=== PATIENT | male | born 1950 | race African-American/Black ===

== ENCOUNTER 2018-10-23 18:30 | Inpatient (IN) | payer MEDICARE, MEDICAID ==
[~2018-10-23] VITALS: Ht 170.2 cm; Wt 66.5 kg
[2018-10-23 20:02] LABS: Basophils # (auto) 0.1 uL; Eosinophils # (auto) 0.1 uL; Eosinophils % (auto) 1.1 % (0.0-7.0); Hematocrit 35.7 % (41.0-53.0); Hemoglobin 11.8 g/dL (13.5-17.5); Lymphocytes # (auto) 1.6 uL; Lymphocytes % (auto) 16.4 % (10.0-50.0); Mean Corpuscular Hgb Conc. 33.2 g/dL (32.0-36.0); Mean Corpuscular Volume 84.5 fL (80.0-100.0); Monocytes # (auto) 1.1 uL; Monocytes % (auto) 10.5 % (0.0-12.0); Neutrophils # (auto) 7.1 uL; Nucleated Red Blood Cells % 0.1 %; Platelet Count (auto) 297 10^3/uL (140-450); Red Blood Cells 4.22 10^6/uL (4.5-5.90); Red Cell Distribution Width 15.2 % (11.8-14.3); White Blood Cell 10.1 10^3/uL (4.4-10.8)
[2018-10-23 20:19] LABS: Albumin 3.3 g/dL (3.4-5.0); BUN/Creatinine Ratio 11.6; Calcium 8.5 mg/dL (8.5-10.1); Potassium 3.3 mmol/L (3.5-5.1)
[2018-10-23 20:20] LABS: Partial Thromboplastin Time 28.7 sec (23.78-33.04); Prothrombin Time 10.7 sec (9.27-12.13)
[2018-10-23 20:21] LABS: Bilirubin, Total 0.3 mg/dL (0.2-1.0); Total Protein 7.2 g/dL (6.4-8.2)
[2018-10-23] MEDS ORDERED: ONDANSETRON HCL 4 MG/2 ML VIAL IV ONE (22:45)
[2018-10-23] MEDS ORDERED: cefTRIAXone 1GM/50ML D5W 50 ML IV ONE (22:45)
[2018-10-23] MEDS ORDERED: MORPHINE SULFATE 4 MG/ML SYR/VIAL IV ONE (22:45)
[2018-10-24] MEDS ORDERED: ONDANSETRON HCL 4 MG/2 ML VIAL IV PRN (03:00)
[2018-10-24] MEDS ORDERED: TEMAZEPAM 15 MG CAP PO PRN (03:00)
[2018-10-24] MEDS ORDERED: ACETAMINOPHEN 325 MG TAB PO PRN (03:00)
[2018-10-24] MEDS ORDERED: HYDROcodone-ACET 5/325MG TAB PO PRN (03:00)
[2018-10-24 05:00] VITALS: BP 149/67
[2018-10-24] MEDS: CLINDAMYCIN 600MG IV 50 ML IV SCH ×3 (05:36→22:50)
[2018-10-24 06:51] VITALS: BP 149/67
[2018-10-24 09:02] VITALS: BP 144/78
[2018-10-24] MEDS: FAMOTIDINE 20 MG TAB PO SCH ×2 (10:00→22:51)
[2018-10-24] MEDS ORDERED: amLODIPine BESYLATE 5 MG TAB PO SCH (10:00)
[2018-10-24] MEDS: LEVETIRACETAM 500 MG TAB PO SCH ×2 (10:32→22:53)
[2018-10-24] MEDS: METOPROLOL TARTRATE 50 MG TAB PO SCH ×3 (10:32→23:52)
[2018-10-24 12:56] VITALS: BP 154/74
[2018-10-24 16:56] VITALS: BP 135/71
[2018-10-24] MEDS: cefTRIAXone 1GM/50ML D5W 50 ML IV SCH (20:44)
[2018-10-24 22:00] VITALS: BP 143/68
[2018-10-24] MEDS: ATORVASTATIN 20 MG TAB PO SCH (22:51)
[2018-10-25 05:00] VITALS: BP 126/54
[2018-10-25 06:28] LABS: Basophils # (auto) 0.1 uL; Basophils % (auto) 0.7 % (0.0-2.0); Eosinophils # (auto) 0.1 uL; Eosinophils % (auto) 1.3 % (0.0-7.0); Hematocrit 36.2 % (41.0-53.0); Hemoglobin 12.1 g/dL (13.5-17.5); Lymphocytes # (auto) 1.1 uL; Lymphocytes % (auto) 12.2 % (10.0-50.0); Mean Corpuscular Hemoglobin 28.1 pg (28.0-32.0); Mean Corpuscular Hgb Conc. 33.4 g/dL (32.0-36.0); Mean Corpuscular Volume 84.4 fL (80.0-100.0); Neutrophils # (auto) 6.5 uL; Neutrophils % (auto) 74.8 % (37.0-80.0); Platelet Count (auto) 285 10^3/uL (140-450); Red Blood Cells 4.29 10^6/uL (4.5-5.90); Red Cell Distribution Width 15.3 % (11.8-14.3); White Blood Cell 8.7 10^3/uL (4.4-10.8)
[2018-10-25] MEDS: CLINDAMYCIN 600MG IV 50 ML IV SCH ×3 (06:33→22:09)
[2018-10-25 06:46] LABS: Potassium 3.4 mmol/L (3.5-5.1)
[2018-10-25 06:55] LABS: Albumin 3.3 g/dL (3.4-5.0); BUN/Creatinine Ratio 11.1; Bilirubin, Total 0.4 mg/dL (0.2-1.0); Calcium 8.8 mg/dL (8.5-10.1); Magnesium 2.3 mg/dL (1.6-2.6)
[2018-10-25 08:53] VITALS: BP 149/70
[2018-10-25] MEDS: METOPROLOL TARTRATE 50 MG TAB PO SCH ×2 (10:24→22:11)
[2018-10-25] MEDS: FAMOTIDINE 20 MG TAB PO SCH ×2 (10:24→22:11)
[2018-10-25] MEDS: amLODIPine BESYLATE 5 MG TAB PO SCH (10:25)
[2018-10-25] MEDS: LEVETIRACETAM 500 MG TAB PO SCH ×2 (10:26→22:10)
[2018-10-25] MEDS ORDERED: POTASSIUM CHL 20 Meq TABLET PO ONE (12:00)
[2018-10-25] MEDS ORDERED: LISINOPRIL 20 MG TAB PO ONE (12:00)
[2018-10-25] MEDS ORDERED: fentaNYL CITRATE 100 MCG/2 ML VL ONE ×3 (12:13→15:17)
[2018-10-25] MEDS ORDERED: ANGIOMAX 250 MG VIAL IV ONE ×2 (12:13→14:23)
[2018-10-25] MEDS ORDERED: SODIUM CHL 0.9% 50 ML ONE ×2 (12:14→14:23)
[2018-10-25] MEDS ORDERED: MIDAZOLAM HCL 1MG/1ML-2 ML VIAL ONE ×2 (12:14→13:56)
[2018-10-25] MEDS ORDERED: IODIXANOL 320MG/ML 100ML BTL IV ONE (12:33)
[2018-10-25] MEDS ORDERED: LIDOCAINE 2%HCL (LOCAL ANESTH.) INJ 20ML MDV ONE (12:33)
[2018-10-25] MEDS ORDERED: VERAPAMIL 2.5MG/ML INJ 2ML VIAL IV ONE (13:10)
[2018-10-25] MEDS ORDERED: IOHEXOL 350 MG/ML 100ML IJ ONE (14:05)
[2018-10-25] MEDS ORDERED: ASPirin 325 MG TAB ONE (15:27)
[2018-10-25] MEDS ORDERED: CLOPIDOGREL 300 MG TAB ONE (15:27)
[2018-10-25 17:00] VITALS: BP 145/78
[2018-10-25 18:53] LABS: Alcohol, Urine < 3.0 mg/dL (0-5); Amphetamine Screen, Urine NEGATIVE (NEGATIVE); Barbiturate Scree,Urine NEGATIVE (NEGATIVE); Benzodiazephine Screen, Urine POSITIVE (NEGATIVE); Cannabinoid Screen, Urine POSITIVE (NEGATIVE); Cocaine Screen, Urine NEGATIVE (NEGATIVE); Opiate Scree,Urine NEGATIVE (NEGATIVE); Phencyclidine Screen, Urine NEGATIVE (NEGATIVE)
[2018-10-25] MEDS: cefTRIAXone 1GM/50ML D5W 50 ML IV SCH (21:01)
[2018-10-25 21:44] VITALS: BP 115/45
[2018-10-25] MEDS: ATORVASTATIN 20 MG TAB PO SCH (22:10)
[2018-10-26 04:52] VITALS: BP 135/69
[2018-10-26] MEDS: CLINDAMYCIN 600MG IV 50 ML IV SCH ×3 (06:05→22:32)
[2018-10-26 09:00] VITALS: BP 114/60
[2018-10-26] MEDS: CLOPIDOGREL BISULFATE 75 MG TAB PO SCH (10:02)
[2018-10-26] MEDS: FAMOTIDINE 20 MG TAB PO SCH ×2 (10:02→22:34)
[2018-10-26] MEDS: ASPirin 81 mg TAB PO SCH (10:03)
[2018-10-26] MEDS: amLODIPine BESYLATE 5 MG TAB PO SCH (10:04)
[2018-10-26] MEDS: METOPROLOL TARTRATE 50 MG TAB PO SCH ×2 (10:05→22:34)
[2018-10-26] MEDS: LISINOPRIL 20 MG TAB PO SCH (10:05)
[2018-10-26] MEDS: LEVETIRACETAM 500 MG TAB PO SCH ×2 (10:10→22:33)
[2018-10-26] MEDS ORDERED: DEXTROSE (50%) 50ML SYRG IV PRN (11:45)
[2018-10-26 13:00] VITALS: BP 114/59
[2018-10-26] MEDS: InsuLIN REG 1unit/0.01ml Soln (100units/ml) SC SCH ×2 (16:59→22:00)
[2018-10-26] MEDS: ACCU-CHEK COMFORT CURVE STRIP VI SCH ×2 (16:59→22:35)
[2018-10-26 17:08] VITALS: BP 110/57
[2018-10-26 22:00] VITALS: BP 115/48
[2018-10-26] MEDS: cefTRIAXone 1GM/50ML D5W 50 ML IV SCH (22:03)
[2018-10-26] MEDS: ATORVASTATIN 20 MG TAB PO SCH (22:33)
[2018-10-27 05:00] VITALS: BP 120/53
[2018-10-27] MEDS: CLINDAMYCIN 600MG IV 50 ML IV SCH ×3 (06:29→23:00)
[2018-10-27] MEDS: InsuLIN REG 1unit/0.01ml Soln (100units/ml) SC SCH ×4 (06:29→22:00)
[2018-10-27] MEDS: ACCU-CHEK COMFORT CURVE STRIP VI SCH ×4 (06:30→22:00)
[2018-10-27 09:00] VITALS: BP 114/60
[2018-10-27] MEDS: FAMOTIDINE 20 MG TAB PO SCH ×2 (09:56→23:00)
[2018-10-27] MEDS: ASPirin 81 mg TAB PO SCH (09:56)
[2018-10-27] MEDS: LEVETIRACETAM 500 MG TAB PO SCH ×2 (09:56→23:00)
[2018-10-27] MEDS: CLOPIDOGREL BISULFATE 75 MG TAB PO SCH (09:56)
[2018-10-27] MEDS: amLODIPine BESYLATE 5 MG TAB PO SCH (09:56)
[2018-10-27] MEDS: METOPROLOL TARTRATE 50 MG TAB PO SCH ×2 (09:56→23:00)
[2018-10-27] MEDS: LISINOPRIL 20 MG TAB PO SCH (09:57)
[2018-10-27 13:28] VITALS: BP 118/60
[2018-10-27 17:28] VITALS: BP 119/53
[2018-10-27 20:00] VITALS: BP 118/60
[2018-10-27 22:00] VITALS: BP_SYST 100; BP_SYST 115; BP_DIAS 47; BP_DIAS 74
[2018-10-27] MEDS: cefTRIAXone 1GM/50ML D5W 50 ML IV SCH (23:00)
[2018-10-27] MEDS: ATORVASTATIN 20 MG TAB PO SCH (23:00)
[2018-10-28 05:10] VITALS: BP 122/66
[2018-10-28 05:36] LABS: Basophils # (auto) 0.1 uL; Basophils % (auto) 0.8 % (0.0-2.0); Eosinophils # (auto) 0.1 uL; Eosinophils % (auto) 1.2 % (0.0-7.0); Hematocrit 31.3 % (41.0-53.0); Hemoglobin 10.2 g/dL (13.5-17.5); Lymphocytes # (auto) 1.1 uL; Lymphocytes % (auto) 12.2 % (10.0-50.0); Mean Corpuscular Hemoglobin 27.6 pg (28.0-32.0); Mean Corpuscular Hgb Conc. 32.8 g/dL (32.0-36.0); Mean Corpuscular Volume 84.3 fL (80.0-100.0); Monocytes # (auto) 1.6 uL; Monocytes % (auto) 17.7 % (0.0-12.0); Neutrophils # (auto) 6.2 uL; Neutrophils % (auto) 68.1 % (37.0-80.0); Platelet Count (auto) 200 10^3/uL (140-450); Red Blood Cells 3.71 10^6/uL (4.5-5.90); Red Cell Distribution Width 14.7 % (11.8-14.3); White Blood Cell 9.1 10^3/uL (4.4-10.8)
[2018-10-28 05:55] LABS: BUN/Creatinine Ratio 13.4; Calcium 8.1 mg/dL (8.5-10.1); Potassium 3.3 mmol/L (3.5-5.1)
[2018-10-28] MEDS: CLINDAMYCIN 600MG IV 50 ML IV SCH ×3 (06:00→21:29)
[2018-10-28] MEDS: InsuLIN REG 1unit/0.01ml Soln (100units/ml) SC SCH ×4 (07:00→21:31)
[2018-10-28] MEDS: ACCU-CHEK COMFORT CURVE STRIP VI SCH ×4 (07:00→21:31)
[2018-10-28 08:09] LABS: Urine Bacteria NONE SEEN /hpf (None Seen); Urine Blood Negative /uL (Negative); Urine Specific Gravity 1.016 (1.001-1.035); Urine WBC <1 /hpf (0 - 3)
[2018-10-28 09:03] VITALS: BP 117/62
[2018-10-28] MEDS: LEVETIRACETAM 500 MG TAB PO SCH ×2 (09:43→21:30)
[2018-10-28] MEDS: FAMOTIDINE 20 MG TAB PO SCH ×2 (09:43→21:30)
[2018-10-28] MEDS: LISINOPRIL 20 MG TAB PO SCH (09:44)
[2018-10-28] MEDS: METOPROLOL TARTRATE 50 MG TAB PO SCH ×2 (09:44→21:41)
[2018-10-28] MEDS: amLODIPine BESYLATE 5 MG TAB PO SCH (09:44)
[2018-10-28] MEDS: DAKINS QUARTER STR 0.125% (NaHypochlorite) 473 ML TOPICAL SOL TOP SCH (10:00)
[2018-10-28] MEDS: POVIDONE IODINE 10 % TOPICAL OINT 30GM TOP SCH ×2 (10:00→12:35)
[2018-10-28] MEDS: ASPirin 81 mg TAB PO SCH (12:12)
[2018-10-28] MEDS: CLOPIDOGREL BISULFATE 75 MG TAB PO SCH (12:12)
[2018-10-28] MEDS ORDERED: POTASSIUM CHL 20 Meq TABLET PO ONE (12:15)
[2018-10-28 13:00] VITALS: BP 108/46
[2018-10-28] MEDS ORDERED: LEVOFLOXACIN 500MG 100 ML IV ONE (16:15)
[2018-10-28 17:00] VITALS: BP 116/56
[2018-10-28] MEDS: ATORVASTATIN 20 MG TAB PO SCH (21:30)
[2018-10-28 22:00] VITALS: BP_SYST 114; BP_SYST 138; BP_DIAS 46; BP_DIAS 75
[2018-10-29] VITALS (7 sets, daily range): BP systolic 106–182; BP diastolic 52–63
[2018-10-29] MEDS: CLINDAMYCIN 600MG IV 50 ML IV SCH ×3 (06:10→21:20)
[2018-10-29] MEDS: InsuLIN REG 1unit/0.01ml Soln (100units/ml) SC SCH ×4 (06:18→21:23)
[2018-10-29] MEDS: ACCU-CHEK COMFORT CURVE STRIP VI SCH ×4 (06:18→21:23)
[2018-10-29] MEDS: POVIDONE IODINE 10 % TOPICAL OINT 30GM TOP SCH (10:00)
[2018-10-29] MEDS: ASPirin 81 mg TAB PO SCH (10:00)
[2018-10-29] MEDS: DAKINS QUARTER STR 0.125% (NaHypochlorite) 473 ML TOPICAL SOL TOP SCH (10:00)
[2018-10-29] MEDS: LEVOFLOXACIN 500MG 100 ML IV SCH (11:38)
[2018-10-29] MEDS: CLOPIDOGREL BISULFATE 75 MG TAB PO SCH (11:39)
[2018-10-29] MEDS: LISINOPRIL 20 MG TAB PO SCH (11:39)
[2018-10-29] MEDS: LEVETIRACETAM 500 MG TAB PO SCH ×2 (11:39→21:20)
[2018-10-29] MEDS: FAMOTIDINE 20 MG TAB PO SCH ×2 (11:40→21:20)
[2018-10-29] MEDS: METOPROLOL TARTRATE 50 MG TAB PO SCH ×2 (11:40→21:20)
[2018-10-29] MEDS: amLODIPine BESYLATE 5 MG TAB PO SCH (11:40)
[2018-10-29] MEDS: ATORVASTATIN 20 MG TAB PO SCH (21:20)
[2018-10-30] VITALS (7 sets, daily range): BP systolic 112–143; BP diastolic 49–72
[2018-10-30] MEDS: CLINDAMYCIN 600MG IV 50 ML IV SCH ×3 (05:34→21:59)
[2018-10-30] MEDS: HYDROcodone-ACET 5/325MG TAB PO PRN ×2 (05:35→22:57)
[2018-10-30] MEDS: InsuLIN REG 1unit/0.01ml Soln (100units/ml) SC SCH ×4 (05:55→22:00)
[2018-10-30] MEDS: ACCU-CHEK COMFORT CURVE STRIP VI SCH ×4 (05:55→22:57)
[2018-10-30] MEDS: LEVOFLOXACIN 500MG 100 ML IV SCH (09:57)
[2018-10-30] MEDS: METOPROLOL TARTRATE 50 MG TAB PO SCH ×2 (09:58→22:00)
[2018-10-30] MEDS: amLODIPine BESYLATE 5 MG TAB PO SCH (09:58)
[2018-10-30] MEDS: LISINOPRIL 20 MG TAB PO SCH (09:59)
[2018-10-30] MEDS: FAMOTIDINE 20 MG TAB PO SCH ×2 (09:59→22:00)
[2018-10-30] MEDS: LEVETIRACETAM 500 MG TAB PO SCH ×2 (09:59→22:00)
[2018-10-30] MEDS: POVIDONE IODINE 10 % TOPICAL OINT 30GM TOP SCH (10:00)
[2018-10-30] MEDS: ASPirin 81 mg TAB PO SCH (10:00)
[2018-10-30] MEDS: CLOPIDOGREL BISULFATE 75 MG TAB PO SCH (10:00)
[2018-10-30] MEDS: DAKINS QUARTER STR 0.125% (NaHypochlorite) 473 ML TOPICAL SOL TOP SCH (10:00)
[2018-10-30] MEDS ORDERED: LIDOCAINE 1% HCL (LOCAL ANESTH.) INJ 20ML MDV ONE ×2 (12:40→14:38)
[2018-10-30] MEDS ORDERED: PROPOFOL 10 MG/ML 20 ML IV ONE (13:32)
[2018-10-30] MEDS ORDERED: MIDAZOLAM HCL 1MG/1ML-2 ML VIAL ONE ×2 (13:32→13:46)
[2018-10-30] MEDS ORDERED: fentaNYL CITRATE 100 MCG/2 ML VL ONE (13:36)
[2018-10-30] MEDS ORDERED: KETAMINE HCL 1 ML ONE (13:37)
[2018-10-30] MEDS ORDERED: METOCLOPRAMIDE HCL 5MG/ml INJ 2ml VIAL ONE (13:39)
[2018-10-30] MEDS ORDERED: ACCU-CHEK COMFORT CURVE STRIP VI ONE (13:45)
[2018-10-30] MEDS ORDERED: NALOXONE HCL 0.4 MG/ML VIAL IV PRN (13:45)
[2018-10-30] MEDS ORDERED: HYDROmorphone HCL 2 MG/ML VL IV PRN (13:45)
[2018-10-30] MEDS ORDERED: ONDANSETRON HCL 4 MG/2 ML VIAL IV ONE (13:45)
[2018-10-30] MEDS ORDERED: BACITRACIN INJ 50000 UNIT VIAL ONE ×2 (13:56→14:18)
[2018-10-30] MEDS ORDERED: diphenhdrAMINE HCL 50 MG/1 ML VL ONE (13:57)
[2018-10-30] MEDS: ATORVASTATIN 20 MG TAB PO SCH (22:00)
[2018-10-30] MEDS: ASCORBIC ACID 500 MG TAB PO SCH (22:00)
[2018-10-31 05:04] VITALS: BP_SYST 119; BP_DIAS 55; BP_DIAS 68
[2018-10-31 06:18] LABS: Basophils # (auto) 0.1 uL; Basophils % (auto) 0.7 % (0.0-2.0); Eosinophils # (auto) 0.1 uL; Eosinophils % (auto) 1.8 % (0.0-7.0); Hematocrit 33.2 % (41.0-53.0); Hemoglobin 10.9 g/dL (13.5-17.5); Lymphocytes # (auto) 1.1 uL; Lymphocytes % (auto) 13.8 % (10.0-50.0); Mean Corpuscular Hemoglobin 28.3 pg (28.0-32.0); Mean Corpuscular Hgb Conc. 32.9 g/dL (32.0-36.0); Mean Corpuscular Volume 85.9 fL (80.0-100.0); Monocytes # (auto) 0.9 uL; Monocytes % (auto) 11.5 % (0.0-12.0); Neutrophils # (auto) 5.7 uL; Neutrophils % (auto) 72.2 % (37.0-80.0); Platelet Count (auto) 250 10^3/uL (140-450); Red Blood Cells 3.86 10^6/uL (4.5-5.90); Red Cell Distribution Width 15.1 % (11.8-14.3); White Blood Cell 7.9 10^3/uL (4.4-10.8)
[2018-10-31] MEDS: CLINDAMYCIN 600MG IV 50 ML IV SCH (06:22)
[2018-10-31] MEDS: InsuLIN REG 1unit/0.01ml Soln (100units/ml) SC SCH ×4 (06:22→22:00)
[2018-10-31] MEDS: ACCU-CHEK COMFORT CURVE STRIP VI SCH ×4 (06:22→22:29)
[2018-10-31 06:49] LABS: BUN/Creatinine Ratio 13.3; Calcium 8.3 mg/dL (8.5-10.1); Magnesium 2.6 mg/dL (1.6-2.6); Potassium 3.9 mmol/L (3.5-5.1)
[2018-10-31 08:00] VITALS: BP 112/58
[2018-10-31 09:00] VITALS: BP 111/50
[2018-10-31] MEDS: LEVOFLOXACIN 500MG 100 ML IV SCH (09:40)
[2018-10-31] MEDS: LEVETIRACETAM 500 MG TAB PO SCH ×2 (09:41→22:27)
[2018-10-31] MEDS: ASPirin 81 mg TAB PO SCH (09:41)
[2018-10-31] MEDS: MULTIPLE VITAMINS W/ MINERALS TAB PO SCH (09:41)
[2018-10-31] MEDS: CLOPIDOGREL BISULFATE 75 MG TAB PO SCH (09:42)
[2018-10-31] MEDS: amLODIPine BESYLATE 5 MG TAB PO SCH (09:42)
[2018-10-31] MEDS: FAMOTIDINE 20 MG TAB PO SCH ×2 (09:42→22:27)
[2018-10-31] MEDS: ASCORBIC ACID 500 MG TAB PO SCH ×2 (09:43→22:27)
[2018-10-31] MEDS: LISINOPRIL 20 MG TAB PO SCH (09:43)
[2018-10-31] MEDS: POVIDONE IODINE 10 % TOPICAL OINT 30GM TOP SCH (10:00)
[2018-10-31] MEDS: METOPROLOL TARTRATE 50 MG TAB PO SCH ×2 (10:00→22:27)
[2018-10-31] MEDS: DAKINS QUARTER STR 0.125% (NaHypochlorite) 473 ML TOPICAL SOL TOP SCH (10:00)
[2018-10-31 13:00] VITALS: BP 114/58
[2018-10-31] MEDS ORDERED: TEMAZEPAM 15 MG CAP PO PRN (13:15)
[2018-10-31] MEDS ORDERED: HYDROcodone-ACET 5/325MG TAB PO PRN (13:15)
[2018-10-31] MEDS ORDERED: LEVOFLOXACIN 250 MG TAB PO ONE (13:30)
[2018-10-31 17:00] VITALS: BP 118/60
[2018-10-31 22:00] VITALS: BP 111/55
[2018-10-31] MEDS: ATORVASTATIN 20 MG TAB PO SCH (22:26)
[2018-11-01 05:00] VITALS: BP 123/57
[2018-11-01] MEDS: ACCU-CHEK COMFORT CURVE STRIP VI SCH ×2 (05:44→12:02)
[2018-11-01] MEDS: InsuLIN REG 1unit/0.01ml Soln (100units/ml) SC SCH ×2 (05:44→11:30)
[2018-11-01 09:00] VITALS: BP 118/59
[2018-11-01] MEDS: ASCORBIC ACID 500 MG TAB PO SCH (09:46)
[2018-11-01] MEDS: LEVETIRACETAM 500 MG TAB PO SCH (09:46)
[2018-11-01] MEDS: ASPirin 81 mg TAB PO SCH (09:46)
[2018-11-01] MEDS: amLODIPine BESYLATE 5 MG TAB PO SCH (09:46)
[2018-11-01] MEDS: MULTIPLE VITAMINS W/ MINERALS TAB PO SCH (09:46)
[2018-11-01] MEDS: CLOPIDOGREL BISULFATE 75 MG TAB PO SCH (09:46)
[2018-11-01] MEDS: LISINOPRIL 20 MG TAB PO SCH (09:47)
[2018-11-01] MEDS: FAMOTIDINE 20 MG TAB PO SCH (09:47)
[2018-11-01] MEDS ORDERED: LEVOFLOXACIN 250 MG TAB PO SCH (10:00)
[2018-11-01] MEDS: DAKINS QUARTER STR 0.125% (NaHypochlorite) 473 ML TOPICAL SOL TOP SCH (10:00)
[2018-11-01] MEDS: METOPROLOL TARTRATE 50 MG TAB PO SCH (10:00)
[2018-11-01] MEDS: POVIDONE IODINE 10 % TOPICAL OINT 30GM TOP SCH (10:00)
[2018-11-01] MEDS ORDERED: CLIN1CAP4 PO (11:55)
[2018-11-01] MEDS ORDERED: ATOR20TA50 PO (11:55)
[2018-11-01] MEDS ORDERED: AML5T PO (11:55)
[2018-11-01] MEDS ORDERED: ASPI-231 PO (11:55)
[2018-11-01] MEDS ORDERED: CEPH500C PO (11:55)
[2018-11-01] MEDS ORDERED: KEP500T PO (11:55)
[2018-11-01] MEDS ORDERED: MET50T PO (11:55)
[2018-11-01] MEDS ORDERED: LEVO750T2 PO (12:04)
[2018-11-01] MEDS ORDERED: CLOP75TA28 PO (12:04)
[2018-11-01 13:00] VITALS: BP 115/64
[2018-11-01 15:14] VITALS: BP 115/64
== END 2018-11-01 17:20 | disposition home health service (06) | DRG 574 ==
LOC: ER 18:30 → OVERFLOW 10-24 03:05 → EAST 10-24 05:09
PROVIDERS: ADMIT Nurse Practitioner; ATTEND Internal Medicine
PROC: 047D3FZ Dilation of Left Common Iliac Artery with Three Intraluminal Devices, Percutaneous Approach (ICD-10-PCS; principal; 2018-10-29)
PROC: 047Q3ZZ Dilation of Left Anterior Tibial Artery, Percutaneous Approach (ICD-10-PCS; 2018-10-29)
PROC: 047L3DZ Dilation of Left Femoral Artery with Intraluminal Device, Percutaneous Approach (ICD-10-PCS; 2018-10-29)
PROC: B41G1ZZ Fluoroscopy of Left Lower Extremity Arteries using Low Osmolar Contrast (ICD-10-PCS; 2018-10-29)
PROC: B310ZZZ Fluoroscopy of Thoracic Aorta (ICD-10-PCS; 2018-10-29)
PROC: 0HRLXK3 Replacement of Left Lower Leg Skin with Nonautologous Tissue Substitute, Full Thickness, External Approach (ICD-10-PCS; 2018-10-30)
PROC: 0Y6U0Z0 Detachment at Left 3rd Toe, Complete, Open Approach (ICD-10-PCS; 2018-10-30)
PROC: 0JBP0ZZ Excision of Left Lower Leg Subcutaneous Tissue and Fascia, Open Approach (ICD-10-PCS; 2018-10-30)
DX: L03.116 Cellulitis of left lower limb (principal); E11.52 Type 2 diabetes mellitus with diabetic peripheral angiopathy with gangrene; L97.929 Non-pressure chronic ulcer of unspecified part of left lower leg with unspecified severity; M86.8X7 Other osteomyelitis, ankle and foot; I70.262 Atherosclerosis of native arteries of extremities with gangrene, left leg; E87.6 Hypokalemia; I10 Essential (primary) hypertension; M20.12 Hallux valgus (acquired), left foot; D63.8 Anemia in other chronic diseases classified elsewhere; E11.42 Type 2 diabetes mellitus with diabetic polyneuropathy; E11.69 Type 2 diabetes mellitus with other specified complication; E78.5 Hyperlipidemia, unspecified; G40.909 Epilepsy, unspecified, not intractable, without status epilepticus; H91.90 Unspecified hearing loss, unspecified ear; I99.8 Other disorder of circulatory system; M20.40 Other hammer toe(s) (acquired), unspecified foot; M21.00 Valgus deformity, not elsewhere classified, unspecified site; M21.42 Flat foot [pes planus] (acquired), left foot; M77.32 Calcaneal spur, left foot; S93.105A Unspecified dislocation of left toe(s), initial encounter; X58.XXXA Exposure to other specified factors, initial encounter; Y93.89 Activity, other specified; Y92.89 Other specified places as the place of occurrence of the external cause; Z79.02 Long term (current) use of antithrombotics/antiplatelets; Z79.82 Long term (current) use of aspirin; Z82.49 Family history of ischemic heart disease and other diseases of the circulatory system; Z87.891 Personal history of nicotine dependence
CPT/HCPCS: 36415; 71045; 73630; 73700; 80048; 80053; 80061; 80307; 81001; 82962; 83036; 83735; 84132; 84443; 85025; 85610; 85730; 86850; 86900; 86901; 87077; 87186; 87205; 93005; 93926; 96365; 96366; 96367; 96375; 99152; A6257; C1876; G0378; J0696; J1956; J2001; J2250; J2405; J2704; J3490; Q9967

== ENCOUNTER 2019-02-11 17:04 | Emergency (ER) | payer MEDICARE, OTHER ==
[~2019-02-11] VITALS: Ht 167.6 cm; Wt 66.2 kg
[~2019-02-11 17:04] MED LIST: AML5T PO; ASPI-231 PO; ATOR20TA50 PO; CLOP75TA28 PO; KEP500T PO; LEVO750T2 PO; MET50T PO
[2019-02-11 18:40] LABS: Basophils # (auto) 0.1 uL; Basophils % (auto) 0.9 % (0.0-2.0); Eosinophils # (auto) 0.2 uL; Eosinophils % (auto) 2.9 % (0.0-7.0); Hematocrit 43.6 % (41.0-53.0); Lymphocytes # (auto) 1.8 uL; Lymphocytes % (auto) 25.1 % (10.0-50.0); Mean Corpuscular Hemoglobin 27.4 pg (28.0-32.0); Mean Corpuscular Hgb Conc. 32.1 g/dL (32.0-36.0); Mean Corpuscular Volume 85.4 fL (80.0-100.0); Monocytes # (auto) 0.6 uL; Monocytes % (auto) 7.9 % (0.0-12.0); Neutrophils # (auto) 4.5 uL; Neutrophils % (auto) 63.2 % (37.0-80.0); Nucleated Red Blood Cells % 0.1 %; Platelet Count (auto) 185 10^3/uL (140-450); Red Cell Distribution Width 16.3 % (11.8-14.3)
[2019-02-11 18:56] LABS: Albumin 3.8 g/dL (3.4-5.0); BUN/Creatinine Ratio 11.7; Calcium 8.5 mg/dL (8.5-10.1); Potassium 3.7 mmol/L (3.5-5.1)
[2019-02-11 18:58] LABS: Bilirubin, Total 0.3 mg/dL (0.2-1.0); Total Protein 7.3 g/dL (6.4-8.2)
[2019-02-11 21:59] LABS: Prothrombin Time 10.7 sec (9.27-12.13)
[2019-02-12] MEDS ORDERED: cefTRIAXone 1GM/50ML D5W 50 ML IV ONE (01:15)
[2019-02-12] MEDS ORDERED: MIDAZOLAM DRIP 50 mg/50mL 50 ML IV SCH (02:40)
[2019-02-12 03:32] VITALS: BP 156/66
== END 2019-02-12 05:30 | disposition home or self-care (01) ==
LOC: ER 17:09
DX: S80.922D Unspecified superficial injury of left lower leg, subsequent encounter (principal); E11.9 Type 2 diabetes mellitus without complications; E78.5 Hyperlipidemia, unspecified; I10 Essential (primary) hypertension; Z79.82 Long term (current) use of aspirin; X58.XXXD Exposure to other specified factors, subsequent encounter
CPT/HCPCS: 36415; 73700; 80053; 85025; 85610; 87040; 96365; 99284; J0696